=== PATIENT | female | born 1975 | race Caucasian/White ===

== ENCOUNTER 2025-02-19 16:44 | Emergency (ER) | payer OTHER, SELFPAY ==
[2025-02-19 16:48] VITALS: BP 143/90; PULSE 96; RESP 28; TEMP 36.1; O2SAT 96; BMI 22.8
--- NOTE | 2025-02-19 16:49 | ED.GENADULT ---
HPI - General Adult General Chief complaint: Overdose Stated complaint: withdrawals/narcaned 45minutes hbp Time Seen by Provider: 02/19/25 17:21 Source: patient, RN notes reviewed and old records reviewed Mode of arrival: ambulatory Limitations: no limitations History of Present Illness ED Provider: David HPI narrative: 49-year-old female presents for evaluation of withdrawal symptoms. Patient reports that she is on methadone 90 mg daily. She reports that she was using opiates IV prior to arrival pain She states that her family gave her Narcan and she is not sure why She complains of feeling shaky, anxious, short of breath with nausea and general body pain She reports recreational drug use he was not trying to harm herself. She reports that she is not currently interested in detox She states that she only used opiates and does not use cocaine Related Data Allergies Allergy/AdvReac Type Severity Reaction Status Date / Time No Known Allergies Allergy Verified 02/19/25 16:50 Review of Systems Constitutional: Constitutional: Denies body ache(s), Denies chills and Denies fever(s) Eyes: Eyes: Denies blurry vision ENT: Denies dizziness Cardiovascular: Cardiovascular: Denies chest pain and Reports dyspnea Respiratory: Respiratory: Reports dyspnea Gastrointestinal: Gastrointestinal: Denies abdominal pain, Reports nausea and Denies vomiting Musculoskeletal: Musculoskeletal: Denies back pain, Reports myalgias and Reports muscle cramps Integumentary/Breasts: Skin/Breast: Denies rash Neurologic: Denies dizziness Psychiatric: Psychiatric: Reports anxiety PMFSH Social History Social History Smoked in Last 30 Days: Yes Use of substances other than those prescribed or required for medical reasons: Yes Substance Use Type: Heroin Substance Use Frequency: Recent Binge Last Used Substance: Just Prior to Admission Advance Directives: No Advance Directives Information Provided: No Patient : No Physical Exam ED Vital Signs: Vital Signs - 24 hr 02/19/25 16:48 Temperature 97 F Pulse Rate 96 Respiratory Rate 28 H Blood Pressure 143/90 H Pulse Oximetry 96 Oxygen Delivery Method Room Air BMI result Body Mass Index 22.8 Const Other: Anxious appearing and jittery lying in the exam stretcher. No tremors noted General: healthy appearing, comfortable, alert and awake Nutritional Appearance: well nourished Orientation/consciousness: patient oriented x3 HENMT Head: Yes normocephalic and Yes atraumatic Eyes Eyelids: Yes eyelids normal Conjunctivae: conjunctivae normal Sclerae: sclerae normal Corneas: corneas normal Pupils: Equal, round and reactive pupils present EOM: EOMs intact bilaterally Neck Neck: Yes full ROM Resp Effort & Inspection: normal respiratory effort, able to speak in complete sentences and not labored Cardio Rate: regular rate Rhythm: regular rhythm GI Inspection: No distended Palpation (GI): Soft to palpation, not firm, nontender, no guarding and not rigid Skin Other: Track chaudhari to the upper extremities without erythema or edema General skin exam: elasticity normal Neuro General: patient oriented x3 Cranial nerves: Yes CN's II-XII intact bilaterally, Yes Equal, round and reactive pupils present and Yes Bilaterally intact EOM present Cognition (Neuro): normal cognition Extrem Other: Moving all extremities well without any obvious deformities Course Course Course Narrative: 49 yo F history of opioid use disorder on methadone here for opioid withdrawal after being Narcan. She state she can't breath and her legs pain. Unsure of who narcan her. Elise De Los Santos, DO 02/19/25 7844 Reevaluation(s) Reevaluation #1: Patient's workup is largely unremarkable, I offered her detox which she declines. She would prefer to be discharged home Time: 19:33 Medications Administered Discontinued Medications Generic Name Dose Route Start Last Admin Trade Name Malickq PRN Reason Stop Dose Admin Lorazepam 2 mg 02/19/25 17:26 02/19/25 17:31 Lorazepam 1 Mg Tablet PO 02/19/25 17:27 2 mg ONCE ONE Administration Ondansetron HCl 4 mg 02/19/25 17:26 02/19/25 17:31 Ondansetron Odt 4 Mg Tab.Rapdis TRANSLINGU 02/19/25 17:27 4 mg ONCE ONE Administration Medical Decision Making Medical Decision Making [facility] Narrative: 49-year-old female presents for evaluation of withdrawal symptoms including shortness of breath, nausea, body aches. She was given Narcan by family member. She admits to using IV opiates and attempt to get high. Denies any intent for self-harm. The patient will be evaluated with EKG, basic labs and a tox screen. She was given Ativan and Zofran for symptom control. Currently she denies any interested in detox so plan for medical clearance and then disposition pending Differential Diagnosis Differential Diagnoses: The differential diagnosis associated with the presentation includes Substance abuse Opiate overdose Polysubstance abuse Opiate withdrawal Anxiety Lab Data MDM Lab Attestation statement: I reviewed the patient's lab results. The patient has a mild leukocytosis which is likely reactive due to her substance abuse. She has no infectious symptoms. She has a mild anemia unclear her baseline. No significant chemistry abnormalities warranting dimension. 02/19/25 18:16 02/19/25 18:16 Labs: Lab Results 02/19/25 02/19/25 Range/Units 18:16 19:19 WBC 11.6 H (4.8-10.8) X10*3/uL RBC 4.00 L (4.20-5.50) X10*6/uL Hgb 11.4 L (12.0-16.0) g/dl Hct 34.7 L (37.0-47.0) % MCV 86.8 (80.0-98.0) fL MCH 28.5 (27.0-33.0) pg MCHC 32.9 (31.0-35.0) g/dl RDW 13.3 (11.0-16.0) % Plt Count 298 (160-400) X10*3/uL MPV 9.8 (9.4-12.3) fL Immature Gran % (Auto) 0.3 (0.0-0.4) % Neut % (Auto) 82.9 H (45-73) % Lymph % (Auto) 10.9 L (20-40) % Jessamine % (Auto) 4.7 (2-11) % Eos % (Auto) 0.9 (0-4) % Baso % (Auto) 0.3 (0-2) % Lymph # (Auto) 1.3 (1.2-4.9) X10*3/uL Jessamine # (Auto) 0.5 (0.1-1.2) X10*3/uL Eos # (Auto) 0.1 (0.0-0.4) X10*3/uL Baso # (Auto) 0.0 (0.0-0.2) X10*3/uL Abs Immat Gran (auto) 0.03 (0.00-0.03) X10*3/uL Absolute Neuts (auto) 9.6 H (2.0-8.3) x10*3/uL Absolute Nucleated RBC 0.000 (0.0-0.012) X10*3/uL Nucleated RBC % (auto) 0.0 (0.0-0.2) /100WBC Sodium 137 (135-145) mmol/L Potassium 3.7 (3.3-5.1) mmol/L Chloride 106 (96-108) mmol/L Carbon Dioxide 23 (22-29) mmol/L Anion Gap 12 (12-20) BUN 20 H (9-16) mg/dL Creatinine 0.68 (0.5-1.4) mg/dL Estim Creat Clear Calc 103.1 Estimated GFR > 60 Random Glucose 114 (60-115) mg/dL Calcium 9.7 (8.4-10.2) mg/dL Total Bilirubin 0.2 (0.0-1.0) mg/dL AST 34 H (5-31) U/L ALT 26 (0-31) U/L Alkaline Phosphatase 115 (39-117) U/L Total Protein 7.3 (6.5-8.0) g/dL Albumin 4.1 (3.5-5.0) g/dL Urine Test NEGATIVE (NEGATIVE) Salicylates < 5.0 L (15-30) mg/dL Acetaminophen < 3 (<30) mcg/mL Ethyl Alcohol < 10 mg/dL Discharge Plan Discharge Clinical Impression: Polysubstance abuse Patient Disposition: Home, Self-Care Instructions: Polysubstance Use Disorder (ED) Additional Instructions: Opiate use disorder You were seen in our Emergency Department today for treatment of opiate use disorder. You may have been dosed with medication for opiate use disorder (MOUD) in the form of suboxone or methadone. You may experience feeling some withdrawal symptoms and this is normal. The? dose in the Emergency Department is a starting dose and meant to be titrated up once you follow up with a clinic. Please do not feel discouraged, it is a process. The nurse has reviewed with you where to follow up and what information to bring with you, to continue treatment. You also may have been given naloxone (narcan) to take home with you. This medication is used to potentially treat opiate overdose. If you decide you want to stop or cut down on how much you?re using, you can call or walk into our outpatient Addiction Treatment office: [facility] (M-F 9am-5p) [address], [address] [phone] You may have been provided with safer injection?items, please take time to take care of YOU and your health. Use new supplies whenever possible to lessen the chances of infections and other illnesses.? ?If you need more supplies, please go [facility],? [address] [place] [address] OR you can call or text to coordinate delivery of safer supplies. You were also provided a list of several treatment providers in the area.? If you experience any worsening symptoms you cannot control please return to the ED or call 911. Please follow up at your next appointment. Things to look out for are fevers, chest pain, shortness of breath, severe pain, dizziness, fainting or any other concerns. Print Language: Turkmen
[2025-02-19 17:15] VITALS: PULSE 96
--- NOTE | 2025-02-19 17:26 | ECG_ITS ---
Test Reason : OVERDOSE Blood Pressure : */* mmHG Vent. Rate : 79 BPM Atrial Rate : 79 BPM P-R Int : 150 ms QRS Dur : 80 ms QT Int : 374 ms P-R-T Axes : 76 58 70 degrees QTcB Int : 428 ms Normal sinus rhythm Minimal voltage criteria for LVH, may be normal variant ( Sokolow-Talley ) Borderline ECG No previous ECGs available Referred By: Tristan Hernandez Electronically Signed By: SHELTON THORNTON
--- NOTE | 2025-02-19 17:34 | PC.NURSE ---
Pt agitated/fidgety- unable to sit still. Medicated per MAR for withdrawal s/s- will attempt lab work when pt is more calm/able to stay still. Heriberto KING aware. Call reinoso within reach, all needs met at this time.
[2025-02-19 18:20] LABS: MANUAL DIFF FLAG NO
[2025-02-19 18:27] LABS: Hematocrit 34.7 % (37.0-47.0); Hemoglobin 11.4 g/dl (12.0-16.0); Imm Gran Abs Auto 0.03 X10*3/uL (0.00-0.03); Imm Gran Pct Auto 0.3 % (0.0-0.4); Lymphocytes Absolute Auto 1.3 X10*3/uL (1.2-4.9); Mean Corpuscular HGB Conc 32.9 g/dl (31.0-35.0); Mean Corpuscular Hemoglobin 28.5 pg (27.0-33.0); Mean Corpuscular Volume 86.8 fL (80.0-98.0); NRBC Abs Auto 0.000 X10*3/uL (0.0-0.012); NRBC Pct Auto 0.0 /100WBC (0.0-0.2); Platelet Count 298 X10*3/uL (160-400); Red Blood Count 4.00 X10*6/uL (4.20-5.50); White Blood Count 11.6 X10*3/uL (4.8-10.8)
[2025-02-19 18:37] LABS: Alanine Aminotransferase 26 U/L (0-31); Albumin Level 4.1 g/dL (3.5-5.0); Alkaline Phosphatase 115 U/L (39-117); Anion Gap 12 (12-20); Aspartate Amino Transferase 34 U/L (5-31); Blood Urea Nitrogen 20 mg/dL (9-16); Calcium 9.7 mg/dL (8.4-10.2); Carbon Dioxide 23 mmol/L (22-29); Chloride 106 mmol/L (96-108); Creatinine Clr Calc Pharmacy 103.1; Estimated Glomerular Filt Rate > 60; Potassium 3.7 mmol/L (3.3-5.1); Sodium 137 mmol/L (135-145); Total Protein 7.3 g/dL (6.5-8.0)
[2025-02-19 18:40] LABS: Acetaminophen LAB < 3 mcg/mL (<30); Salicylate < 5.0 mg/dL (15-30)
[2025-02-19 19:28] LABS: Appearance Urine Clear; Glucose Urine UA Negative (Negative); PH 6.0 (5.0-9.0); Specific Gravity - Urine 1.015 (1.005-1.025)
[2025-02-19 19:29] LABS: UPreg QC Valid YES
[2025-02-19 19:36] LABS: Cannabinoid Screen Urine Not Detected (Not Detect)
[2025-02-19 19:54] VITALS: BP 115/75; PULSE 80; RESP 16; TEMP 36.7; O2SAT 96
--- OUTSIDE RECORDS SUMMARY | 2025-02-19 20:19 | XMS_ITS | Clinical Summary ---
Author Organization [employer] Address [address] [place] [address] Care Team Providers Care Cardiovascular Technician Name Role Phone Unavailable Primary Care Provider Unavailabl e Allergies No known active allergies Medications methadone (Dolophine) 0.1 mg/mL solution Take 95 mg by mouth. 08/04/2018 Active atenolol (Tenormin) 25 MG tablet Take 1 tablet by mouth at bed time. Active Social History Tobacco Use Types Packs/Day Years Used Date Smoking Tobacco: Every Day Cigarettes Smokeless Tobacco: Never Comments Unknown Sex and Gender Information Value Date Recorded Sex Assigned at Female 02/21/2022 10:39 AM EDT Legal Sex Female 10:39 AM EDT Gender Identity Female 02/21/2022 10:39 AM EDT Sexual Orientation Straight 02/21/2022 10 :39 AM EDT Plan of Treatment Health Maintenance Due Date Last Done Comments CT Colonography 1977 Colonoscopy 1977 Colorectal Cancer Screening 1977 Dental Prophylaxis 1977 Dental X-Ray: Bitewings 1977 Depression Screening 1977 FIT DNA/Cologuard 1977 FIT 1977 FOBT 1977 HIV Screening 1977 SDOH Screening 1977 Sigmoidoscopy 1977 Disability Screening 1977 Alcohol/Substance Use Screening 1989 Family Planning (PISQ) 1992 Hepatitis C Screening 11/21/1995 Hepatitis B Vaccines (1 of 3 - 19+ 3-dose series) 1996 Pneumococcal Vaccine: Pediatrics (0 to 5 Years) and At-Risk Patients (6 to 49) Years (1 of 2 - PCV) 1996 Pap Smear 1998 Cervical Cancer Screening 11/21/2007 HPV/Cotest 11/21/2007 Mammogram 2017 Dental Oral Exam 05/25/2023 11/21/2022 Tobacco Screening 02/21/2024 02/20/2023 COVID-19 Vaccine (4 - 2024-2 6 season) 2024 03/08/2022, 04/27/2021, 07/30/2020 Influenza Vaccine (#1) 2024 Dental X-Ray: Full Mouth 11/22/2025 11/21/2022 Zoster Vaccines (1 of 2) 11/21/2027 DTaP/Tdap/Td Vaccines (2 - T d or Tdap) 08/21/2030 08/21/2020 RSV Patients and Patients Aged 60 years or older (1 - 1-dose 75+ series) 2052 HIB Vaccines Aged Out No longer eligi ble based on patient's age to complete this topic HPV Vaccines Aged Out No longer eligi ble based on patient's age to complete this topic Hepatitis A Vaccines Aged Out No long er eligible based on patient's age to complete this topic IPV Vaccines Aged Out No longer eligi ble based on patient's age to complete this topic Meningococcal B Vaccine Aged Out No l onger eligible based on patient's age to complete this topic Meningococcal Vaccine Aged Out No tabatha marlen eligible based on patient's age to complete this topic RSV under 20 months Aged Out No longe r eligible based on patient's age to complete this topic Rotavirus Vaccines Aged Out No longer eligible based on patient's age to complete this topic Procedures Procedure Name Priority Date/Time Associated Diagnosis Comments PANORAMIC RADIOGRAPHIC IMAGE Routine 11/21/2022 8:00 AM EDT COMPREHENSIVE ORAL EVALUATION - NEW OR ESTABLISHED PATIENT Routine 11/21/2022 8:00 AM EDT from Last 3 Months or Most Recently Relevant to [place] [id number] [facility] MEDICAID STAND ADULT
--- OUTSIDE RECORDS SUMMARY | 2025-02-19 20:19 | XMS_ITS ---
Author Name [facility] Organization Unknown Care Team Organization Name Specialty Phone Email Start Date End Da te [facility] GIANNI CRUZ Primary Care 03/01/2022 4
== END 2025-02-19 19:55 | disposition home or self-care (01) ==
PROVIDERS: Physician Assistant; Emergency Provider Emergency Medicine Emergency Medical Services
DX: F19.10 Other psychoactive substance abuse, uncomplicated (principal); R06.02 Shortness of breath; R11.0 Nausea; M79.606 Pain in leg, unspecified
CPT/HCPCS: 36415; 80053; 80143; 80179; 80307; 81003; 81025; 85025; 93005; 99285

== ENCOUNTER → 2025-02-19 17:26 | Outpatient (BNV) | payer OTHER, SELFPAY | PROVIDERS: Emergency Provider Emergency Medicine Emergency Medical Services; Visit Provider Internal Medicine | DX: Z13.6 Encounter for screening for cardiovascular disorders (principal) | CPT/HCPCS: 93010 ==